=== PATIENT | male | born 1970 ===

== ENCOUNTER 2023-08-26 12:10 | Outpatient (CLI) | payer OTHER, SELFPAY ==
--- NOTE | 2023-08-26 12:14 | MR_ITS ---
WS: [id number] MRI BRAIN WITH HIGH-RESOLUTION IMAGING THROUGH THE INTERNAL AUDITORY CANALS WITHOUT AND WITH CONTRAST HISTORY: SENSORINEURAL HEARING LOSS,BILATERAL COMPARISON: None available. TECHNIQUE: Multiplanar, multisequence imaging is performed through the brain. Additional 3 mm imaging performed in multiple planes through the internal auditory canal. Postcontrast imaging with 18 ml's of MultiHance. No acute intracranial hemorrhage, midline shift, edema or mass effect. No significant atrophy. No prior infarct or significant small vessel ischemic disease. Cerebellum and chris are negative. No hippocampal formation atrophy. Ventricles and extra-axial spaces are normal. No inferior displacement of cerebellar tonsils. Clivus and pituitary gland are normal. Internal and external auditory canals: Unremarkable. Cranial nerves VII and VIII complexes: Unremarkable. No enhancement or mass. Cerebellopontine angles: Normal. Paranasal sinuses: Very mild mucoperiosteal thickening in the frontal and ethmoid sinuses. Mastoid air cells: Bilateral mastoid air cell effusions, RIGHT greater than LEFT. Calvarium and scalp: Normal. Visualized [place] of [place] and dural venous sinuses demonstrate no abnormality. MR/MR iac's wo/w con* [id number] IMPRESSION: 1. No mass or abnormal enhancement at the cerebellopontine angles or internal auditory canals. 2. No prior infarcts. No acute infarct. 3. No atrophy. 4. Normal hippocampal formations.
[2023-08-26] MEDS: gadobenate dimeglumine 20 mL vial IV (13:17)
== END 2023-08-26 12:11 | disposition home or self-care (01) ==
LOC: RAD 12:10
PROVIDERS: Visit Provider Specialist
DX: H90.41 Sensorineural hearing loss, unilateral, right ear, with unrestricted hearing on the contralateral side (principal)
CPT/HCPCS: 70553; A9577